=== PATIENT | female | born 2005 | race Caucasian/White ===

== ENCOUNTER → 2023-02-24 | Outpatient (CLI) | payer SELFPAY ==
[~2023-02-24] VITALS: Ht 170.2 cm; Wt 51.5 kg
[~2023-02-24] MED LIST: HOME MED LIST COMPLETE! XX SCH; PRENTAB9 PO
[2023-02-24 11:34] VITALS: BP 100/65
== END ==
LOC: M LDO 11:15
PROVIDERS: ATTEND Obstetrics & Gynecology
DX: O26.852 Spotting complicating pregnancy, second trimester (principal); Z3A.19 19 weeks gestation of pregnancy
CPT/HCPCS: 59025; G0463

== ENCOUNTER 2023-04-25 12:21 | Outpatient (CLI) | payer OTHER ==
[~2023-04-25] VITALS: Ht 170.2 cm; Wt 56.0 kg
[~2023-04-25 12:21] MED LIST changes: +ALBUTEROL SULFATE 2.5MG/0.5ML INH NEB SOLN INH PRN; +EPINEPHrine INJ 1 MG/ML 1ML AMP IM PRN; -HOME MED LIST COMPLETE! XX SCH; +diphenhydrAMINE 50MG/ML VIAL IV PRN; +methylPREDNISolone 125MG 2ML VIAL IV PRN
[2023-04-25] MEDS ORDERED: IRON SUCROSE 25 MG in NS 23.75 ML IV ONE (13:00)
[2023-04-25] MEDS ORDERED: IRON SUCROSE 275 MG in NS 250 ML IV ONE (13:00)
[2023-04-25] MEDS ORDERED: NS 1,000 ML IV SCH (13:00)
[2023-04-25 13:02] VITALS: BP 110/73; O2SAT 98
[2023-04-25 14:00] VITALS: BP 100/68; O2SAT 99
[2023-04-25 15:30] VITALS: BP 116/72; O2SAT 99
[2023-04-25 16:00] VITALS: BP 117/58; O2SAT 98
== END 2023-04-25 16:00 ==
LOC: M INFU 12:21
PROVIDERS: ATTEND Obstetrics & Gynecology
DX: D50.9 Iron deficiency anemia, unspecified (principal)
CPT/HCPCS: 96365; 96366; J1756

== ENCOUNTER 2023-05-02 13:45 | Outpatient (CLI) | payer OTHER ==
[~2023-05-02] VITALS: Ht 170.2 cm; Wt 54.6 kg
[~2023-05-02 13:45] MED LIST changes: +NS 1,000 ML IV SCH
[2023-05-02 13:51] VITALS: BP 114/65; O2SAT 99
[2023-05-02] MEDS ORDERED: IRON SUCROSE 300 MG in NS 250 ML OVER 90 MIN. IV ONE (13:55)
[2023-05-02 16:20] VITALS: BP 115/68; O2SAT 99
== END 2023-05-02 16:20 ==
LOC: M INFU 13:45
PROVIDERS: ATTEND Obstetrics & Gynecology
DX: D64.9 Anemia, unspecified (principal); Z3A.27 27 weeks gestation of pregnancy
CPT/HCPCS: 96365; 96366; J1756

== ENCOUNTER 2023-05-09 12:30 | Outpatient (CLI) | payer OTHER ==
[~2023-05-09] VITALS: Ht 170.2 cm; Wt 55.5 kg
[~2023-05-09 12:30] MED LIST changes: +IRON SUCROSE 300 MG in NS 250 ML OVER 90 MIN. IV ONE
[2023-05-09 15:40] VITALS: BP 117/66; O2SAT 96
== END 2023-05-09 15:40 | disposition home or self-care (01) ==
LOC: M INFU 12:30
PROVIDERS: ATTEND Obstetrics & Gynecology
DX: D64.9 Anemia, unspecified (principal)
CPT/HCPCS: 96365; J1756

== ENCOUNTER 2023-06-08 21:28 | Outpatient (CLI) | payer OTHER ==
[~2023-06-08] VITALS: Ht 170.2 cm; Wt 56.8 kg
[~2023-06-08 21:28] MED LIST changes: -ALBUTEROL SULFATE 2.5MG/0.5ML INH NEB SOLN INH PRN; -EPINEPHrine INJ 1 MG/ML 1ML AMP IM PRN; -IRON SUCROSE 300 MG in NS 250 ML OVER 90 MIN. IV ONE; -NS 1,000 ML IV SCH; -diphenhydrAMINE 50MG/ML VIAL IV PRN; -methylPREDNISolone 125MG 2ML VIAL IV PRN
[2023-06-08 21:47] VITALS: BP 113/69
[2023-06-08] MEDS ORDERED: LR 1,000 ML IV ONE (22:20)
[2023-06-08 22:48] LABS: HEMATOCRIT 31.8 % (36.0-47.0); HEMOGLOBIN 10.6 g/dl (12.0-15.5); MEAN CORPUSCULAR HEMOGLOBIN 29.3 pg (27.0-33.0); MEAN CORPUSCULAR HGB CONC 33.3 g/dl (32.0-36.5); MEAN CORPUSCULAR VOLUME 87.8 fl (80.0-96.0); PLATELET COUNT, AUTOMATED 331 10^3/uL (150-450); RED BLOOD COUNT 3.62 10^6/uL (4.00-5.40); WHITE BLOOD COUNT 11.7 10^3/uL (4.0-10.0)
[2023-06-08 22:54] VITALS: BP 115/76
[2023-06-08] MEDS ORDERED: FOSFOMYCIN TROMETHAMINE 3 GM POWDER PACKET (MONUROL) PO ONE (23:00)
== END 2023-06-08 22:51 | disposition home or self-care (01) ==
LOC: M LDO 21:28
PROVIDERS: ATTEND Obstetrics & Gynecology
DX: O23.43 Unspecified infection of urinary tract in pregnancy, third trimester (principal); N39.0 Urinary tract infection, site not specified; Z3A.34 34 weeks gestation of pregnancy
CPT/HCPCS: 59025; 76815; 81001; 85027; 87086; G0463

== ENCOUNTER 2023-07-11 11:59 | Inpatient (IN) | payer OTHER ==
[~2023-07-11] VITALS: Ht 170.2 cm; Wt 58.3 kg
[2023-07-11] MEDS ORDERED: HOME MED LIST COMPLETE! XX SCH (12:25)
[2023-07-11] MEDS ORDERED: IRON15CH PO (12:27)
[2023-07-11 12:28] VITALS: BP 113/64
[2023-07-11 13:13] LABS: HEMATOCRIT 35.5 % (36.0-47.0); MEAN CORPUSCULAR HEMOGLOBIN 29.5 pg (27.0-33.0); MEAN CORPUSCULAR HGB CONC 33.8 g/dl (32.0-36.5); MEAN CORPUSCULAR VOLUME 87.2 fl (80.0-96.0); PLATELET COUNT, AUTOMATED 340 10^3/uL (150-450); RED BLOOD COUNT 4.07 10^6/uL (4.00-5.40); WHITE BLOOD COUNT 11.4 10^3/uL (4.0-10.0)
[2023-07-11] MEDS ORDERED: LIDOCAINE 1% MDV 20ML VIAL INFIL PRN (13:55)
[2023-07-11] MEDS ORDERED: OXYTOCIN DRIP 30 UNITS in IV 1 EA IV PRN ×4 (13:55)
[2023-07-11] MEDS ORDERED: TRANEXAMIC ACID INJection 1,000 MG in NS 100 ML IV PRN (13:55)
[2023-07-11] MEDS: LR 1,000 ML IV SCH ×2 (13:55→21:55)
[2023-07-11] MEDS ORDERED: METHYLERGONOVINE MALEATE 0.2MG/ML 1ML VIAL IM PRN (13:55)
[2023-07-11 14:39] VITALS: BP 115/57
[2023-07-11] MEDS: miSOPROStol 50MCG 1/2 TABLET PO SCH ×3 (15:27→23:00)
[2023-07-11 15:30] VITALS: BP 116/66
[2023-07-11 17:04] VITALS: BP 123/79
[2023-07-11 18:36] VITALS: BP 117/66
[2023-07-11] MEDS ORDERED: OXYTOCIN DRIP 30 UNITS in IV 1 EA IV SCH (20:25)
[2023-07-11] MEDS ORDERED: PENICILLIN G POTASSIUM 5 MU IV 5 MU in D5W MINI-BAG PLUS 100 ML IV STA (22:09)
[2023-07-11] MEDS ORDERED: ePHEDrine SULFATE 25 MG/5 ML(5MG/ML) SYRINGE IVP PRN (22:35)
[2023-07-11] MEDS ORDERED: NALOXONE INJ 0.4MG/1ML VIAL IV PRN (22:35)
[2023-07-11] MEDS ORDERED: LR 500 ML IV PRN (22:35)
[2023-07-11] MEDS ORDERED: diphenhydrAMINE 50MG/ML VIAL IV PRN (22:35)
[2023-07-11] MEDS ORDERED: ONDANSETRON 4MG 2ML VIAL IV PRN (22:35)
[2023-07-11] MEDS ORDERED: EPIDURAL/PCA KEYS XX PRN (22:35)
[2023-07-11] MEDS: FENTANYL/ROPIVACAINE/NACL BAG 100 ML EPIDURAL SCH (23:23)
[2023-07-12] MEDS ORDERED: OXYTOCIN 30UNITS IN 0.9% NaCl 500ML IV BAG As Ordered ONE (01:14)
[2023-07-12 01:43] LABS: CORD GAS ABE V -4.1; CORD GAS HCO3 V 20.1 MMOL/L; CORD GAS O2 SAT V 78.5 %; CORD GAS PCO2 V 34.9 mmHg; CORD GAS PH V 7.378 UNITS; CORD GAS PO2 V 32.9 mmHg; CORD GAS SBC V 20.6 MMOL/L; CORD GAS TCO2 V 21.2 MMOL/L
[2023-07-12 01:46] LABS: CORD GAS ABE A -2.9; CORD GAS O2 SAT A 29.7 %; CORD GAS PH A 7.275 UNITS; CORD GAS PO2 A 16.5 mmHg; CORD GAS SBC A 20.3 MMOL/L; CORD GAS TCO2 A 26.7 MMOL/L
[2023-07-12] MEDS ORDERED: ONDANSETRON 4MG 2ML VIAL IV PRN (01:50)
[2023-07-12] MEDS ORDERED: IBUPROFEN 600MG TAB PO PRN (01:50)
[2023-07-12] MEDS ORDERED: DOCUSATE SODIUM 100MG CAPSULE PO PRN (01:50)
[2023-07-12] MEDS ORDERED: METHYLERGONOVINE MALEATE 0.2MG/ML 1ML VIAL IM PRN (01:50)
[2023-07-12] MEDS ORDERED: LR 1,000 ML IV SCH (01:50)
[2023-07-12] MEDS ORDERED: DIBUCAINE 1% OINTMENT 30GM TOP PRN (01:50)
[2023-07-12] MEDS ORDERED: RHOGAM 300MCG (1500IU) INJ IM SCH (01:50)
[2023-07-12] MEDS ORDERED: ACETAMINOPHEN TAB 650MG DOSE (2X325MG) PO PRN (01:50)
[2023-07-12] MEDS ORDERED: METOCLOPRAMIDE INJ 10MG/2ML VIAL IV PRN (01:50)
[2023-07-12] MEDS ORDERED: OXYTOCIN DRIP 30 UNITS in IV 1 EA IV SCH (01:50)
[2023-07-12] MEDS ORDERED: PEN G POT 3,000,000 UNIT/50 ML 3,000,000 UNIT in IV 1 EA IV SCH (02:30)
[2023-07-12] MEDS: miSOPROStol 50MCG 1/2 TABLET PO SCH (03:00)
[2023-07-12 03:45] VITALS: BP 121/72
[2023-07-12] MEDS: FENTANYL/ROPIVACAINE/NACL BAG 100 ML EPIDURAL SCH (04:06)
[2023-07-12] MEDS: IBUPROFEN 800 MG TAB PO PRN ×2 (04:37→20:18)
[2023-07-12 06:00] VITALS: BP 112/58
[2023-07-12] MEDS: PRENATAL VITAMINS CHEWABLE TABLET PO SCH (08:24)
[2023-07-12 18:00] VITALS: BP 101/58; O2SAT 98
[2023-07-12] MEDS: ACETAMINOPHEN 500 MG TAB PO PRN (22:20)
[2023-07-13 06:00] VITALS: BP 110/53; O2SAT 98
[2023-07-13 07:03] LABS: HEMATOCRIT 32.6 % (36.0-47.0); HEMOGLOBIN 10.9 g/dl (12.0-15.5); MEAN CORPUSCULAR HEMOGLOBIN 28.9 pg (27.0-33.0); MEAN CORPUSCULAR HGB CONC 33.4 g/dl (32.0-36.5); MEAN CORPUSCULAR VOLUME 86.5 fl (80.0-96.0); PLATELET COUNT, AUTOMATED 283 10^3/uL (150-450); RED BLOOD COUNT 3.77 10^6/uL (4.00-5.40); WHITE BLOOD COUNT 15.1 10^3/uL (4.0-10.0)
[2023-07-13] MEDS: PRENATAL VITAMINS CHEWABLE TABLET PO SCH (11:02)
[2023-07-13] MEDS: IBUPROFEN 800 MG TAB PO PRN ×2 (11:03→19:40)
[2023-07-13] MEDS: ACETAMINOPHEN 500 MG TAB PO PRN ×2 (12:59→23:11)
[2023-07-13 18:00] VITALS: BP 91/52; O2SAT 99
[2023-07-14] MEDS: IBUPROFEN 800 MG TAB PO PRN (05:26)
[2023-07-14 06:09] VITALS: BP 103/52; O2SAT 98
[2023-07-14] MEDS: PRENATAL VITAMINS CHEWABLE TABLET PO SCH (07:41)
[2023-07-14] MEDS ORDERED: COLA100C5 PO (08:29)
[2023-07-14] MEDS ORDERED: ACET1TAB55 PO (08:29)
[2023-07-14] MEDS ORDERED: IBUP-1022 PO (08:29)
[2023-07-14] MEDS ORDERED: MEASLES,MUMPS,RUBELLA VACCINE INJ (MMR-II) SC.IMMUN ONE (09:00)
== END 2023-07-14 13:05 | disposition home or self-care (01) | DRG 807 ==
LOC: M LDI 11:59 → M OBS 07-12 03:45
PROVIDERS: ADMIT Obstetrics & Gynecology; ATTEND Obstetrics & Gynecology
PROC: 3E033VJ Introduction of Other Hormone into Peripheral Vein, Percutaneous Approach (ICD-10-PCS; 2023-07-11)
PROC: 10E0XZZ Delivery of Products of Conception, External Approach (ICD-10-PCS; principal; 2023-07-12)
DX: O41.03X0 Oligohydramnios, third trimester, not applicable or unspecified (principal); Z37.0 Single live birth; Z3A.39 39 weeks gestation of pregnancy; O99.824 Streptococcus B carrier state complicating childbirth